=== PATIENT | female | born 1995 | race Caucasian/White ===

== ENCOUNTER 2018-02-09 01:05 | Emergency (ER) | payer BC ==
[~2018-02-09] VITALS: Ht 162.6 cm; Wt 59.2 kg
[2018-02-09] MEDS ORDERED: NALOXONE 0.4 MG/ML, 1ML ONE (01:22)
[2018-02-09 01:30] LABS: BASOPHILS # (AUTO) 0.13 x10^3/uL (0-0.1); BASOPHILS % (AUTO) 1 % (0-1); EOSINOPHILS # (AUTO) 0.87 x10^3/uL (0-0.4); EOSINOPHILS % (AUTO) 7 % (1-7); LYMPHOCYTES # (AUTO) 4.52 x10^3/uL (1-3.4); LYMPHOCYTES % (AUTO) 34 % (22-44); MD NO; MEAN CORPUSCULAR HEMOGLOBIN 25.3 pg (27.0-34.8); MEAN CORPUSCULAR HGB CONC 32.5 g/dL (32.4-35.8); MEAN CORPUSCULAR VOLUME 77.6 fL (80-100); MEAN PLATELET VOLUME 9.2 fL (7.4-10.4); MONOCYTES # (AUTO) 1.02 x10^3/uL (0.2-0.8); MONOCYTES % (AUTO) 8 % (2-9); NEUTROPHILS % (AUTO) 50 % (42-75); PLATELET COUNT 287 x10^3/uL (130-400); RED BLOOD COUNT 5.13 x10^6/uL (3.82-5.3); RED CELL DISTRIBUTION WIDTH 14.7 % (9.6-15.2)
[2018-02-09 01:43] LABS: ALANINE AMINOTRANSFERASE 28 U/L (12-78); ALBUMIN 3.8 g/dL (3.4-5.0); ANION GAP 13 mmol/L (5-15); CALCIUM 7.7 mg/dL (8.5-10.1); CHLORIDE 110 mmol/L (98-107); CREATININE 0.74 mg/dL (0.55-1.02)
[2018-02-09 01:47] LABS: ALKALINE PHOSPHATASE 102 U/L (45-117); BILIRUBIN,TOTAL 0.3 mg/dL (0.2-1.0); SALICYLATE LEVEL < 1.7 mg/dL (2.8-20.0); TOTAL PROTEIN 8.1 g/dL (6.4-8.2)
[2018-02-09 01:48] LABS: ACETAMINOPHEN < 2 mcg/mL (10-30)
[2018-02-09] MEDS ORDERED: NALOXONE 0.4 MG/ML, 1ML IVPush ONE (02:00)
[2018-02-09 04:36] VITALS: BP 105/74
== END 2018-02-09 04:48 | disposition home or self-care (01) ==
LOC: ED 02:42
DX: J96.01 Acute respiratory failure with hypoxia (principal); R41.82 Altered mental status, unspecified; F10.229 Alcohol dependence with intoxication, unspecified; G31.2 Degeneration of nervous system due to alcohol; J45.909 Unspecified asthma, uncomplicated; F13.20 Sedative, hypnotic or anxiolytic dependence, uncomplicated; F15.10 Other stimulant abuse, uncomplicated; F17.210 Nicotine dependence, cigarettes, uncomplicated
CPT/HCPCS: 36415; 80053; 80307; 80329; 85025; 96374; 99291; J2310; G0480